=== PATIENT | female | born 1995 | race Caucasian/White ===

== ENCOUNTER 2023-11-20 03:50 | Emergency (ER) | payer OTHER ==
[~2023-11-20] VITALS: Ht 170.2 cm; Wt 109.8 kg
[2023-11-20] MEDS ORDERED: HYDROCODONE/APAP 5/325MG TABLET PO ONE (04:00)
[2023-11-20] MEDS ORDERED: HYDROCODONE/APAP 5/325MG TABLET ONE (04:03)
[2023-11-20 06:17] VITALS: BP 128/70; TEMP 98; O2SAT 99
== END 2023-11-20 06:18 | disposition home or self-care (01) ==
LOC: ER 03:59
DX: S82.51XA Displaced fracture of medial malleolus of right tibia, initial encounter for closed fracture (principal); W01.0XXA Fall on same level from slipping, tripping and stumbling without subsequent striking against object, initial encounter; Y93.89 Activity, other specified; Y92.89 Other specified places as the place of occurrence of the external cause; Y99.8 Other external cause status
CPT/HCPCS: 73610-TC